=== PATIENT | male | born 1975 | race Caucasian/White ===

== ENCOUNTER 2017-12-18 03:08 | Emergency (ER) | payer SELFPAY ==
[~2017-12-18] VITALS: Ht 190.5 cm; Wt 83.9 kg
[2017-12-18] MEDS ORDERED: NITROGLYCERIN 0.4 MG SL TABS BTL 25'S SL PRN (03:15)
[2017-12-18 03:28] LABS: BASOPHILS # (AUTO) 0.1 10^3/uL (0.0-0.1); BASOPHILS % (AUTO) 1 % (0-10); EOSINOPHILS # (AUTO) 0.1 10^3/uL (0.0-0.3); EOSINOPHILS % (AUTO) 1 % (0-10); HEMATOCRIT 45 % (40-54); HEMOGLOBIN 15.7 G/DL (13.3-17.7); LYMPHOCYTES # (AUTO) 1.9 X 10^3 (1.0-4.0); LYMPHOCYTES % (AUTO) 18 % (12-44); MEAN CORPUSCULAR HEMOGLOBIN 33 PG (25-34); MEAN CORPUSCULAR HGB CONC 35 G/DL (32-36); MEAN CORPUSCULAR VOLUME 93 FL (80-99); MEAN PLATELET VOLUME 9.7 FL (7.4-10.4); MONOCYTES # (AUTO) 1.1 X 10^3 (0.0-1.0); MONOCYTES % (AUTO) 10 % (0-12); NEUTROPHILS # (AUTO) 7.8 X 10^3 (1.8-7.8); NEUTROPHILS % (AUTO) 71 % (42-75); PLATELET COUNT 189 10^3/uL (130-400); RED BLOOD COUNT 4.78 10^6/uL (4.35-5.85)
--- NOTE | 2017-12-18 03:33 | ED Chest Pain ---
General Chief Complaint: Chest Pain Stated Complaint: CP Nursing Triage Note: brought in by [facility] for chest pain starting approx. 0000 Nursing Sepsis Screen: No Definite Risk Source: patient Exam Limitations: no limitations (BOBY MORFIN) History of Present Illness Date Seen by Provider: Dec 18, 2017 Time Seen by Provider: 03:09 Initial Comments Patient presents to the ER by EMS with a chief complaint that he was walking down [address] and began to feel a sharp substernal chest pain that was pushing its way out. The chest pain did not radiate anywhere. He did not have any sweats, nausea but he did have some shortness of breath. EMS picked him up and gave him a dose of aspirin as well as nitroglycerin which completely resolved his pain. He does not have a personal history of cardiac disease, thyroid disease, hypertension, hypercholesterolemia, stroke however he says his father was 38 when he had his first heart attack. The patient denies that he uses any kind of drugs. He does smoke about half pack per day. He does not take any medications nor does he follow with a doctor. He has no known other medical history or surgical history. (BOBY MORFIN) Allergies and Home Medications Allergies Coded Allergies: No Known Drug Allergies (Unverified , 12/18/17) Home Medications No Active Prescriptions or Reported Meds Patient Home Medication List Home Medication List Reviewed: Yes (ELEN BECERRA MD) Review of Systems Constitutional: No chills, No diaphoresis EENTM: No Blurred Vision, No Double Vision Respiratory: See HPI, Denies Cough, Shortness of Air Cardiovascular: See HPI, Chest Pain, Denies Edema, Denies Irregular Heart Rate , Denies Palpitations, Denies Syncope Gastrointestinal: Denies Abdomen Distended, Denies Abdominal Pain, Denies Constipated, Denies Diarrhea, Denies Nausea Genitourinary: Denies Burning, Denies Discharge Musculoskeletal: No back pain, No joint pain Skin: No pruritus, No rash Psychiatric/Neurological: Denies Headache, Denies Numbness, Denies Paresthesia (BOBY MORFIN) Past Ttzaowe-Asdlen-Rszkbb Hx Patient Social History Alcohol Use: Denies Use Recreational Drug Use: No Smoking Status: Current Everyday Smoker Type Used: Cigarettes 2nd Hand Smoke Exposure: Yes Recent Foreign Travel: No Contact w/Someone Who Travel: No Recent Infectious Disease Expo: No Recent Hopitalizations: No (BOBY MORFIN) Immunizations Up To Date Tetanus Booster (TDap): Unknown (BOBY MORFIN) Seasonal Allergies Seasonal Allergies: No (BOBY MORFIN) Surgeries History of Surgeries: No (BOBY MORFIN) Respiratory History of Respiratory Disorde: No (BOBY MORFIN) Cardiovascular History of Cardiac Disorders: No (BOBY MORFIN) Neurological History of Neurological Disord: No (BOBY MORFIN) Genitourinary History of Genitourinary Disor: No (BOBY MORFIN) Gastrointestinal History of Gastrointestinal Di: No (BOBY MORFIN) Musculoskeletal History of Musculoskeletal Dis: No (BOBY MORFIN) Endocrine History of Endocrine Disorders: No (BOBY MORFIN) HEENT History of HEENT Disorders: No (BOBY MORFIN) Cancer History of Cancer: No (BOBY MORFIN) Psychosocial History of Psychiatric Problem: No (BOBY MORFIN) Integumentary History of Skin or Integumenta: No (BOBY MORFIN) Blood Transfusions History of Blood Disorders: No (BOBY MORFIN) Physical Exam Vital Signs Vital Signs - First Documented 12/18/17 03:08 Temp 98.0 Pulse 85 Resp 13 B/P (MAP) 105/63 (77) Pulse Ox 96 O2 Delivery Nasal Cannula O2 Flow Rate 2.0 (ELEN BECERRA MD) Vital Signs Capillary Refill : Less Than 3 Seconds (BOBY MORFIN) General Appearance: No Apparent Distress, WD/WN HEENT: PERRL/EOMI, Pharynx Normal (oral mucosa is dry) Neck: Normal Inspection, Non Tender, Supple Respiratory: Chest Non Tender, Lungs Clear, Normal Breath Sounds, No Accessory Muscle Use, No Respiratory Distress Cardiovascular: Regular Rate, Rhythm, No Edema, Normal Peripheral Pulses Gastrointestinal: Normal Bowel Sounds, Non Tender, Soft Extremity: Normal Capillary Refill, No Pedal Edema Neurologic/Psychiatric: Alert, Oriented x3, No Motor/Sensory Deficits Skin: Normal Color, Warm/Dry (BOBY MORFIN) Progress/Results/Core Measures Results/Orders Lab Results Laboratory Tests Test 12/18/17 03:15 12/18/17 04:05 12/18/17 07:40 Range/Units White Blood Count 11.0 4.3-11.0 10^3/uL Red Blood Count 4.78 4.35-5.85 10^6/uL Hemoglobin 15.7 13.3-17.7 G/DL Hematocrit 45 40-54 % Mean Corpuscular Volume 93 80-99 FL Mean Corpuscular Hemoglobin 33 25-34 PG Mean Corpuscular Hemoglobin Concent 35 32-36 G/DL Red Cell Distribution Width 13.0 10.0-14.5 % Platelet Count 189 130-400 10^3/uL Mean Platelet Volume 9.7 7.4-10.4 FL Neutrophils (%) (Auto) 71 42-75 % Lymphocytes (%) (Auto) 18 12-44 % Monocytes (%) (Auto) 10 0-12 % Eosinophils (%) (Auto) 1 0-10 % Basophils (%) (Auto) 1 0-10 % Neutrophils # (Auto) 7.8 1.8-7.8 X 10^3 Lymphocytes # (Auto) 1.9 1.0-4.0 X 10^3 Monocytes # (Auto) 1.1 H 0.0-1.0 X 10^3 Eosinophils # (Auto) 0.1 0.0-0.3 10^3/uL Basophils # (Auto) 0.1 0.0-0.1 10^3/uL Prothrombin Time 13.3 12.2-14.7 SEC INR Comment 1.0 0.8-1.4 Activated Partial Thromboplast Time 34 24-35 SEC D-Dimer 0.45 0.00-0.49 UG/ML Sodium Level 139 135-145 MMOL/L Potassium Level 4.3 3.6-5.0 MMOL/L Chloride Level 102 98-107 MMOL/L Carbon Dioxide Level 24 21-32 MMOL/L Anion Gap 13 5-14 MMOL/L Blood Urea Nitrogen 15 7-18 MG/DL Creatinine 1.16 0.60-1.30 MG/DL Estimat Glomerular Filtration Rate > 60 BUN/Creatinine Ratio 13 Glucose Level 79 70-105 MG/DL Calcium Level 9.3 8.5-10.1 MG/DL Magnesium Level 1.9 1.8-2.4 MG/DL Total Bilirubin 0.7 0.1-1.0 MG/DL Aspartate Amino Transf (AST/SGOT) 45 H 5-34 U/L Alanine Aminotransferase (ALT/SGPT) 25 0-55 U/L Alkaline Phosphatase 70 40-136 U/L Myoglobin 341.3 H 161.4 H 10.0-92.0 NG/ML Troponin I < 0.30 < 0.30 <0.30 NG/ML Total Protein 7.0 6.4-8.2 GM/DL Albumin 4.2 3.2-4.5 GM/DL Urine Opiates Screen NEGATIVE NEGATIVE Urine Oxycodone Screen NEGATIVE NEGATIVE Urine Methadone Screen NEGATIVE NEGATIVE Urine Propoxyphene Screen NEGATIVE NEGATIVE Urine Barbiturates Screen NEGATIVE NEGATIVE Ur Tricyclic Antidepressants Screen NEGATIVE NEGATIVE Urine Phencyclidine Screen NEGATIVE NEGATIVE Urine Amphetamines Screen NEGATIVE NEGATIVE Urine Methamphetamines Screen NEGATIVE NEGATIVE Urine Benzodiazepines Screen NEGATIVE NEGATIVE Urine Cocaine Screen NEGATIVE NEGATIVE Urine Cannabinoids Screen NEGATIVE NEGATIVE (ELEN BECERRA MD) My Orders Orders - ELEN BECERRA MD Saline Lock/Iv-Start (12/18/17 06:59) Ns Iv 1000 Ml (Sodium Chloride 0.9%) (12/18/17 06:59) Myoglobin Serum (12/18/17 06:59) Fibrin Degradation Products (12/18/17 06:59) Ns Iv 1000 Ml (Sodium Chloride 0.9%) (12/18/17 06:59) General/Regular (12/18/17 Breakfast) (ELEN BECERRA MD) Medications Given in ED Current Medications Medications Dose Ordered Sig/Jenna Route Start Time Stop Time Status Last Admin Dose Admin Sodium Chloride 1,000 ml @ 0 mls/hr Q0M ONCE IV 12/18/17 06:59 12/18/17 07:02 DC 12/18/17 07:10 1,000 MLS/HR (ELEN BECERRA MD) Vital Signs/I&O Vital Sign - Last 12Hours 12/18/17 12/18/17 12/18/17 12/18/17 03:08 03:08 03:08 09:14 Temp 98.0 Pulse 85 72 Resp 13 13 B/P (MAP) 105/63 (77) 110/68 (77) Pulse Ox 96 96 98 O2 Delivery Nasal Cannula Nasal Cannula Nasal Cannula Room Air O2 Flow Rate 2.0 2.0 (ELEN BECERRA MD) Blood Pressure Mean: 77 Progress Note : Time: 03:47 Progress Note ED ACS scores 8 which is low risk. Patient is probably going to be eligible for a delta troponin rule out and discharged with follow-up plans. We'll discuss initial EKG and troponin with cardiology. (BOBY MORFIN) Progress Note : Progress Note 0840: I assumed care of the patient earlier from Dr. Morfin pending labs. Patient was pain free at that time and remains pain-free currently. Patient is requesting something to eat. We did give a liter of normal saline. Patient has had some lower blood pressure but states that is typical for him. He is transient and is working his way back to [place]. On reexam, he has no pain and is without respiratory distress. I did discuss the case with Dr. Ovalles. He is like to see him in the office today. Repeat troponin is negative and myoglobin is decreased. D-dimer is negative. Patient tolerating breakfast without difficulty. We will discharge patient and have him follow-up with Dr. Springer's office this morning. Discharged home with return precautions. Patient verbalize understanding of instructions and agreement with plan. (ELEN BECERRA MD) ECG Initial ECG Impression Date: Dec 18, 2017 Initial ECG Impression Time: 03:09 Initial ECG Rate: 91 Initial ECG Rhythm: Normal Sinus Initial ECG Intervals: Normal Initial ECG Impression: Normal, Nonspecific Changes Initial ECG Comparisson: No Previous ECG Available Comment No ST segment elevation or depression. (BOBY MORFIN) EKG : EKG Time: 07:44 Rate: 71 Comment Sinus/junctional rhythm with normal rate. No evidence of ST elevation RI. Artifact noted on EKG. Occasional PVC. Interpreted by me. (ELEN BECERRA MD) Diagnostic Imaging Diagonstic Imaging: Xray Plain Films/CT/US/NM/MRI: chest (1v) Reviewed: Reviewed by Me (BOBY MORFIN) Consults Consults : Consulting Physician: MIKE SPRINGER MD FACP FACC CCDS Consults Notes Dr. Springer. Discussed case lab imaging findings and he recommends repeating a troponin and EKG 6 hours from onset of chest pain which is about 1 to 1:30. After which she would have us call his office and get an appointment for the patient to walk-in today. Discussed this plan with the patient and he is okay with this. (BOBY MORFIN) Transfer of Care Transfer of Care Time: 06:11 Care transferred to: MARIAM (BOBY MORFIN) Departure Impression Impression: Primary Impression: Chest pain Qualified Codes: R07.9 - Chest pain, unspecified Disposition: HOME, SELF-CARE Condition: Stable Departure-Patient Inst. Referrals: MIKE SPRINGER MD [facility] NO,LOCAL PHYSICIAN (PCP) Primary Care Physician Patient Instructions: Chest Pain (DC) Add. Discharge Instructions: All discharge instructions reviewed with patient and/or family. Voiced understanding. Go to Dr. Springer's office this morning as directed at that time given to by the nurse. Return for worse pain, fever, vomiting, weakness, breathing problems or other concerns as needed. Scripts No Active Prescriptions or Reported Meds Copy Copies To 1: MIKE SPRINGER MD [facility] BOBY MORFIN Dec 18, 2017 03:33 ELEN BECERRA MD Dec 18, 2017 08:54
[2017-12-18 03:37] LABS: PROTHROMBIN TIME PATIENT 13.3 SEC (12.2-14.7)
[2017-12-18 03:48] LABS: ALANINE AMINOTRANSFERASE 25 U/L (0-55); ALBUMIN 4.2 GM/DL (3.2-4.5); ALKALINE PHOSPHATASE 70 U/L (40-136); BILIRUBIN,TOTAL 0.7 MG/DL (0.1-1.0); BUN/CREATININE RATIO 13; CALCIUM 9.3 MG/DL (8.5-10.1); CARBON DIOXIDE 24 MMOL/L (21-32); CHLORIDE 102 MMOL/L (98-107); CREATININE SERUM 1.16 MG/DL (0.60-1.30); GFR ESTIMATED > 60; GLUCOSE 79 MG/DL (70-105); MAGNESIUM 1.9 MG/DL (1.8-2.4); POTASSIUM 4.3 MMOL/L (3.6-5.0); SODIUM 139 MMOL/L (135-145)
[2017-12-18 03:56] LABS: MYOGLOBIN SERUM 341.3 NG/ML (10.0-92.0)
[2017-12-18 04:27] LABS: AMPHETAMINE SCREEN, URINE NEGATIVE (NEGATIVE); BARBITURATE SCREEN URINE NEGATIVE (NEGATIVE); BENZODIAZEPINES SCREEN URINE NEGATIVE (NEGATIVE); CANNABINOID SCREEN, URINE NEGATIVE (NEGATIVE); COCAINE SCREEN URINE NEGATIVE (NEGATIVE); METHADONE STAT NEGATIVE (NEGATIVE); METHAMPHETAMINE SCREEN URINE S NEGATIVE (NEGATIVE); OPIATE SCREEN URINE NEGATIVE (NEGATIVE); OXYCODONE STAT NEGATIVE (NEGATIVE); PROPOXYPHENE STAT NEGATIVE (NEGATIVE); TRICYCLIC ANTIDEPRESSANTS SCRE NEGATIVE (NEGATIVE)
[2017-12-18] MEDS ORDERED: NS IV 1000 ML 1,000 ML ONE (06:59)
[2017-12-18] MEDS ORDERED: NS IV 1000 ML 1,000 ML IV ONE (06:59)
--- NOTE | 2017-12-18 07:41 | Diagnostic Imaging Report ---
EXAMINATION: Chest radiograph, portable AP view. DATE: December 18, 2017 at 0349 hours. INDICATION: 42-year-old male, chest pain. COMPARISON: None. FINDINGS: Heart size and mediastinal contours are unremarkable. There is no identified pneumothorax. There is no large pleural effusion. There is no identified focal airspace consolidation. IMPRESSION: No identified acute cardiopulmonary abnormality. Dictated by: Dictated on workstation # [id number]
[2017-12-18 09:14] VITALS: BP 110/68
== END 2017-12-18 09:13 | disposition home or self-care (01) ==
LOC: ER 03:10
DX: R07.89 Other chest pain (principal); F17.210 Nicotine dependence, cigarettes, uncomplicated
CPT/HCPCS: 36415; 71045; 80053; 80306; 83735; 83874; 84484; 85025; 85379; 85610; 85730; 93005; 93041

== ENCOUNTER 2017-12-19 18:08 | Emergency (ER) | payer SELFPAY ==
[~2017-12-19] VITALS: Ht 190.5 cm; Wt 87.5 kg
[2017-12-19] MEDS ORDERED: ASPIRIN 81 MG CHEW (CHILDREN'S ASA) PO ONE (18:15)
[2017-12-19] MEDS ORDERED: NS 100 ML (IVPB) BAG IV ONE (18:30)
[2017-12-19] MEDS ORDERED: IOHEXOL 350 MG/ML 150 ML (OMNIPAQUE 350) VIAL IV ONE (18:30)
[2017-12-19 18:35] LABS: BASOPHILS # (AUTO) 0.1 10^3/uL (0.0-0.1); BASOPHILS % (AUTO) 1 % (0-10); EOSINOPHILS # (AUTO) 0.2 10^3/uL (0.0-0.3); EOSINOPHILS % (AUTO) 4 % (0-10); HEMATOCRIT 42 % (40-54); HEMOGLOBIN 14.5 G/DL (13.3-17.7); LYMPHOCYTES # (AUTO) 1.9 X 10^3 (1.0-4.0); LYMPHOCYTES % (AUTO) 34 % (12-44); MEAN CORPUSCULAR HEMOGLOBIN 32 PG (25-34); MEAN CORPUSCULAR HGB CONC 35 G/DL (32-36); MEAN CORPUSCULAR VOLUME 93 FL (80-99); MEAN PLATELET VOLUME 10.1 FL (7.4-10.4); MONOCYTES # (AUTO) 0.7 X 10^3 (0.0-1.0); MONOCYTES % (AUTO) 12 % (0-12); NEUTROPHILS # (AUTO) 2.7 X 10^3 (1.8-7.8); NEUTROPHILS % (AUTO) 49 % (42-75); PLATELET COUNT 175 10^3/uL (130-400); RED BLOOD COUNT 4.47 10^6/uL (4.35-5.85); RED CELL DISTRIBUTION WIDTH 12.8 % (10.0-14.5); WHITE BLOOD COUNT 5.6 10^3/uL (4.3-11.0)
[2017-12-19 18:45] LABS: PROTHROMBIN TIME PATIENT 12.8 SEC (12.2-14.7)
[2017-12-19 18:53] LABS: ALANINE AMINOTRANSFERASE 22 U/L (0-55); ALBUMIN 3.9 GM/DL (3.2-4.5); ALKALINE PHOSPHATASE 62 U/L (40-136); AMYLASE 47 U/L (25-125); BILIRUBIN,TOTAL 0.5 MG/DL (0.1-1.0); BUN/CREATININE RATIO 9; CALCIUM 8.8 MG/DL (8.5-10.1); CARBON DIOXIDE 22 MMOL/L (21-32); CHLORIDE 107 MMOL/L (98-107); CREATINE KINASE 546 U/L (30-200); CREATININE SERUM 1.06 MG/DL (0.60-1.30); GFR ESTIMATED > 60; GLUCOSE 122 MG/DL (70-105); MAGNESIUM 1.8 MG/DL (1.8-2.4); POTASSIUM 3.9 MMOL/L (3.6-5.0); SODIUM 138 MMOL/L (135-145); TOTAL PROTEIN 6.3 GM/DL (6.4-8.2)
--- NOTE | 2017-12-19 19:00 | Diagnostic Imaging Report ---
INDICATION: Left-sided chest pain, shortness of breath for 2 days COMPARISON STUDY: Chest from yesterday. FINDINGS: A portable upright view of the chest demonstrates the lungs to be clear. The heart, mediastinum, and pulmonary vascularity are normal. IMPRESSION: Normal portable chest. Dictated by: Dictated on workstation # [id number]
[2017-12-19 19:13] LABS: CREATINE KINASE MB 3.4 NG/ML (<6.6); TSH (THYROID ANALYZER) 1.15 UIU/ML (0.35-4.94)
--- NOTE | 2017-12-19 19:18 | Diagnostic Imaging Report ---
INDICATION: Left anterior chest pain with cough and shortness of air. CONTRAST: 125 mL Omnipaque 350. COMPARISON STUDY: Plain films of the chest from earlier today. FINDINGS: No pulmonary emboli, aortic dissection or aneurysm is present. There is a normal takeoff of the great vessels. The heart size is normal. No vascular calcifications are identified. There are no pleural or pericardial effusions. The visualized portions of the abdomen appear normal. No abnormal adenopathy is present. A few bullae are present within the upper lobes. The lungs are otherwise clear. The osseous structures appear normal. IMPRESSION: 1. No pulmonary emboli, aortic dissection or aneurysm is present. 2. Mild emphysematous changes are present. Dictated by: Dictated on workstation # [id number]
[2017-12-19] MEDS ORDERED: KETOROLAC 30 MG/ML VIAL IVP ONE (19:45)
--- NOTE | 2017-12-19 19:45 | ED Chest Pain ---
General Chief Complaint: Chest Pain Stated Complaint: HEART PALPITATIONS,SOB Nursing Triage Note: PT CO OF CHEST PAIN, STATES HAS PALPATIONS, PT STATES STARTED JUST A LITTLE WHILE AGO. PT WAS SEEN IN ED YESTERDAY FOR CHEST PAIN Nursing Sepsis Screen: No Definite Risk Allergies and Home Medications Allergies Coded Allergies: No Known Drug Allergies (Unverified , 12/18/17) Home Medications No Active Prescriptions or Reported Meds Past Cysfqzk-Yoksmz-Vokwuq Hx Patient Social History Alcohol Use: Denies Use Recreational Drug Use: No Type Used: Cigarettes 2nd Hand Smoke Exposure: Yes Recent Foreign Travel: No Contact w/Someone Who Travel: No Recent Infectious Disease Expo: No Recent Hopitalizations: No Physical Abuse: No Sexual Abuse: No Immunizations Up To Date Tetanus Booster (TDap): Unknown Seasonal Allergies Seasonal Allergies: No Surgeries History of Surgeries: No Respiratory History of Respiratory Disorde: No Cardiovascular History of Cardiac Disorders: No Neurological History of Neurological Disord: No Genitourinary History of Genitourinary Disor: No Gastrointestinal History of Gastrointestinal Di: No Musculoskeletal History of Musculoskeletal Dis: No Endocrine History of Endocrine Disorders: No HEENT History of HEENT Disorders: No Cancer History of Cancer: No Psychosocial History of Psychiatric Problem: No Suicide Risk Score: 0 Integumentary History of Skin or Integumenta: No Blood Transfusions History of Blood Disorders: No Physical Exam Vital Signs Vital Signs - First Documented 12/19/17 12/19/17 18:10 18:15 Temp 97.9 Pulse 75 Resp 18 B/P (MAP) 123/74 (90) Pulse Ox 96 O2 Delivery Room Air Capillary Refill : Less Than 3 Seconds Progress/Results/Core Measures Results/Orders Lab Results Laboratory Tests Test 12/19/17 18:20 Range/Units White Blood Count 5.6 4.3-11.0 10^3/uL Red Blood Count 4.47 4.35-5.85 10^6/uL Hemoglobin 14.5 13.3-17.7 G/DL Hematocrit 42 40-54 % Mean Corpuscular Volume 93 80-99 FL Mean Corpuscular Hemoglobin 32 25-34 PG Mean Corpuscular Hemoglobin Concent 35 32-36 G/DL Red Cell Distribution Width 12.8 10.0-14.5 % Platelet Count 175 130-400 10^3/uL Mean Platelet Volume 10.1 7.4-10.4 FL Neutrophils (%) (Auto) 49 42-75 % Lymphocytes (%) (Auto) 34 12-44 % Monocytes (%) (Auto) 12 0-12 % Eosinophils (%) (Auto) 4 0-10 % Basophils (%) (Auto) 1 0-10 % Neutrophils # (Auto) 2.7 1.8-7.8 X 10^3 Lymphocytes # (Auto) 1.9 1.0-4.0 X 10^3 Monocytes # (Auto) 0.7 0.0-1.0 X 10^3 Eosinophils # (Auto) 0.2 0.0-0.3 10^3/uL Basophils # (Auto) 0.1 0.0-0.1 10^3/uL Prothrombin Time 12.8 12.2-14.7 SEC INR Comment 1.0 0.8-1.4 Activated Partial Thromboplast Time 34 24-35 SEC Sodium Level 138 135-145 MMOL/L Potassium Level 3.9 3.6-5.0 MMOL/L Chloride Level 107 98-107 MMOL/L Carbon Dioxide Level 22 21-32 MMOL/L Anion Gap 9 5-14 MMOL/L Blood Urea Nitrogen 10 7-18 MG/DL Creatinine 1.06 0.60-1.30 MG/DL Estimat Glomerular Filtration Rate > 60 BUN/Creatinine Ratio 9 Glucose Level 122 H 70-105 MG/DL Calcium Level 8.8 8.5-10.1 MG/DL Magnesium Level 1.8 1.8-2.4 MG/DL Total Bilirubin 0.5 0.1-1.0 MG/DL Aspartate Amino Transf (AST/SGOT) 28 5-34 U/L Alanine Aminotransferase (ALT/SGPT) 22 0-55 U/L Alkaline Phosphatase 62 40-136 U/L Total Creatine Kinase 546 H 30-200 U/L Creatine Kinase MB 3.4 <6.6 NG/ML Troponin I < 0.30 <0.30 NG/ML B-Type Natriuretic Peptide < 10.0 <100.0 PG/ML Total Protein 6.3 L 6.4-8.2 GM/DL Albumin 3.9 3.2-4.5 GM/DL Amylase Level 47 25-125 U/L TSH [place] Testing 1.15 0.35-4.94 UIU/ML My Orders Orders - JUDITH LIN DO Amylase (12/19/17 18:13) Cbc With Automated Diff (12/19/17 18:13) Comprehensive Metabolic Panel (12/19/17 18:) Creatine Kinase (12/19/17 18:) Creatine Kinase Mb (12/19/17 18:) Lipase (12/19/17 18:) Partial Thromboplastin Time (12/19/17 18:) Protime With Inr (12/19/17 18:) Troponin I (12/19/17:) Chest 1 View, Ap/Pa Only (12/19/17 18:) O2 (12/19/17 18:13) Ekg Tracing (12/19/17 18:) Aspirin Chewable Tablet (Baby Aspirin Ch (12/19/17 18:15) BNP (12/19/17 18:) Monitor-Rhythm Ecg Trace Only (12/19/17 18:) Drug Screen Stat (Urine) (12/19/17:) Magnesium (12/19/17:) Thyroid Analyzer (12/19/17:) Ua Culture If Indicated (12/19/17 18:) Ct Angio Chest W (12/19/17 18:13) Iohexol Injection (Omnipaque 350 Mg/Ml 1 (12/19/17 18:30) Ns (Ivpb) (Sodium Chloride 0.9% Ivpb Bag (12/19/17 18:30) Ketorolac Injection (Toradol Injection) (12/19/17 19:45) Medications Given in ED Current Medications Medications Dose Ordered Sig/Jenna Route Start Time Stop Time Status Last Admin Dose Admin Aspirin 324 mg ONCE ONCE PO 12/19/17 18:15 12/19/17 18:16 DC 12/19/17 18:38 324 MG Iohexol 150 ml ONCE ONCE IV 12/19/17 18:30 12/19/17 18:31 DC 12/19/17 18:52 125 ML Sodium Chloride 100 ml ONCE ONCE IV 12/19/17 18:30 12/19/17 18:31 DC 12/19/17 18:52 100 ML Vital Signs/I&O Vital Sign - Last 12Hours 12/19/17 12/19/17 18:10 18:15 Temp 97.9 Pulse 75 Resp 18 B/P (MAP) 123/74 (90) Pulse Ox 96 O2 Delivery Room Air Blood Pressure Mean: 90 Departure Impression Impression: Primary Impression: Chest pain Additional Impression: Left-sided chest wall pain Disposition: HOME, SELF-CARE Condition: Stable Departure-Patient Inst. Referrals: MIKE DEL ANGEL MD FACP FACC CCDS NO,LOCAL PHYSICIAN (PCP) Primary Care Physician Patient Instructions: Chest Pain (DC), Costochondritis (DC) Add. Discharge Instructions: GET YOUR PRESCRIPTIONS FILLED AND TAKE THEM PRESCRIBED TYLENOL NEEDED FOR PAIN KEEP YOUR APPOINTMENT FOR CARDIAC CATH ON THURSDAY WITH DR. DEL ANGEL All discharge instructions reviewed with patient and/or family. Voiced understanding. Scripts No Active Prescriptions or Reported Meds JUDITH LIN DO Dec 19, 2017 19:45
[2017-12-19 19:46] LABS: BILIRUBIN,URINE NEGATIVE (NEGATIVE); CLARITY,URINE SLIGHTLY CLOUDY; COLOR,URINE YELLOW; GLUCOSE, URINE (UA) NEGATIVE (NEGATIVE); KETONES,URINE NEGATIVE (NEGATIVE); LEUKOCYTE ESTERASE ,URINE NEGATIVE (NEGATIVE); NITRITE,URINE NEGATIVE (NEGATIVE); PH,URINE 6.5 (5-9); PROTEIN,URINE 1+ (NEGATIVE); UROBILINOGEN,URINE 4 MG/DL (NORMAL)
[2017-12-19 19:48] LABS: LIPASE 24 U/L (8-78)
[2017-12-19 19:51] VITALS: BP 105/79
[2017-12-19 19:54] LABS: SQUAMOUS EPITHELIAL CELL,UR RARE /HPF
[2017-12-19 19:56] LABS: AMPHETAMINE SCREEN, URINE NEGATIVE (NEGATIVE); BARBITURATE SCREEN URINE NEGATIVE (NEGATIVE); BENZODIAZEPINES SCREEN URINE NEGATIVE (NEGATIVE); CANNABINOID SCREEN, URINE NEGATIVE (NEGATIVE); COCAINE SCREEN URINE NEGATIVE (NEGATIVE); METHADONE STAT NEGATIVE (NEGATIVE); METHAMPHETAMINE SCREEN URINE S NEGATIVE (NEGATIVE); OPIATE SCREEN URINE NEGATIVE (NEGATIVE); OXYCODONE STAT NEGATIVE (NEGATIVE); PROPOXYPHENE STAT NEGATIVE (NEGATIVE); TRICYCLIC ANTIDEPRESSANTS SCRE NEGATIVE (NEGATIVE)
== END 2017-12-19 19:51 | disposition home or self-care (01) ==
LOC: EDUNIT# 18:08 → ER 18:11
DX: R07.89 Other chest pain (principal); Z77.22 Contact with and (suspected) exposure to environmental tobacco smoke (acute) (chronic)
CPT/HCPCS: 36415; 71045; 71275; 80053; 80306; 81000; 82150; 82550; 82553; 83690; 83735; 83880; 84443; 84484; 85025; 85610; 85730; 93005; 93041